=== PATIENT | female | born 1950 | race American Indian/Alaskan Native ===

== ENCOUNTER 2017-12-15 15:10 | Observation (INO) | payer BC, MEDICARE ==
[2017-12-15 15:10] VITALS: BMI 25.8
[2017-12-15] MEDS ORDERED: Sodium Chloride 0.9% 1,000 ML IV STA (15:51)
[2017-12-15] MEDS ORDERED: Barium Sulfate Susp 2.1% w/v, 2.0% w/w 450 mL Bottle PO ONE (16:12)
[2017-12-15 16:38] LABS: ALB/GLOB RATIO 1.2 (1.1-1.8); ALBUMIN 4.3 g/dL (3.0-4.8); ALT/SGPT 29 U/L (7-56); AMYLASE 72 U/L (35-125); AST/SGOT 28 U/L (14-36); BLOOD UREA NITROGEN 12 mg/dL (7-21); CALCIUM 10.1 mg/dL (8.4-10.5); GFR AFRICAN-AMERICAN > 60; GFR NON-AFRICAN AMERICAN 55; LIPASE 24 U/L (23-300)
[2017-12-15] MEDS ORDERED: Potassium Chloride 20 mEq ER Tab PO STA (16:40)
[2017-12-15 16:46] LABS: PH,URINE 5.5 (4.7-8.0); URINE BILIRUBIN SMALL (NEGATIVE); URINE BLOOD LARGE (NEGATIVE); URINE GLUCOSE (UA) NEGATIVE (NEGATIVE); URINE LEUKOCYTE ESTERASE TRACE Leu/uL (NEGATIVE); URINE PROTEIN 30 mg/dL (<30 mg/dL); URINE UROBILINOGEN 0.2 E.U./dL (<1 E.U./dL)
[2017-12-15 16:48] LABS: URINE APPEARANCE CLEAR (CLEAR); URINE COLOR YELLOW (YELLOW)
[2017-12-15 16:49] LABS: BASO # 0.02 K/mm3 (0.0-2.0); BASO % 0.2 % (0.0-3.0); EOS % 0.4 % (1.5-5.0); GRAN # 8.66 (1.4-6.5); GRAN % 75.8 % (50.0-68.0); HEMOGLOBIN 12.1 g/dL (12.0-16.0); LYMPH # 1.9 (1.2-3.4); LYMPH % 16.7 % (22.0-35.0); MEAN CELL VOLUME 81.9 fl (80.0-105.0); MEAN CORPUSCULAR HEMOGLOBIN 27.1 pg (25.0-35.0); MEAN CORPUSCULAR HGB CONC 33.1 g/dl (31.0-37.0); MEAN PLATELET VOLUME 9.2 fl (7.0-11.0); MONO # 0.8 (0.1-0.6); MONO % 6.9 % (1.0-6.0); RBC 4.47 10^6/uL (3.5-6.1); RED CELL DISTRIBUTION WIDTH 13.7 % (11.5-14.5); TROPONIN I < 0.01 ng/mL; WHITE BLOOD COUNT 11.4 10^3/ul (4.5-11.0)
--- NOTE | 2017-12-15 16:59 | ED PDOC ---
Arrival/HPI - General Chief Complaint: Abdominal Pain Time Seen by Provider: 12/15/17 15:18 Historian: Patient - History of Present Illness Narrative History of Present Illness (Text): 12/15/17 16:54 67yo female with no significant PMHx and surgical history of hernia repair present with complaint of LLQ abdominal pain with nausea, heaves and loose stool. States pain started 3days ago and became worse today. She thinks pain is from carrying heavy luggages few days prior. States she is heaving because she didn't eat for few days, secondary to Christian fasting. She denies melena, hematemesi, fever, chills, chest pain, SOB, diaphoresis, urinary symptoms, any other complaint. Past Medical History - Provider Review Nursing Documentation Reviewed: Yes - Reproductive Menopause: Yes - Cardiac Hx Cardiac Disorders: No - Pulmonary Hx Respiratory Disorders: No - Neurological Hx Neurological Disorder: No - HEENT Hx HEENT Disorder: No - Renal Hx Renal Disorder: No - Endocrine/Metabolic Hx Endocrine Disorders: No - Hematological/Oncological Hx Blood Disorders: No - Integumentary Hx Eczema: Yes - Musculoskeletal/Rheumatological Hx Musculoskeletal Disorders: No - Gastrointestinal Hx Gastrointestinal Disorders: No - Genitourinary/Gynecological Hx Genitourinary Disorders: No - Psychiatric Hx Psychophysiologic Disorder: No Hx Emotional Abuse: No Hx Physical Abuse: No Hx Substance Use: No - Surgical History Other/Comment: HERNIA REPAIR - Suicidal Assessment Feels Threatened In Home Enviroment: No Family/Social History - Physician Review Nursing Documentation Reviewed: Yes Family/Social History: Unknown Family HX Smoking Status: Unknown If Ever Smoked Hx Alcohol Use: No Hx Substance Use: No Hx Substance Use Treatment: No Allergies/Home Meds Allergies/Adverse Reactions: Allergies Iodine and Iodide Containing Produc Allergy (Verified 12/15/17 15:20) RASH shellfish derived Allergy (Verified 12/15/17 15:20) RASH Home Medications: Home Meds Medication Instructions Recorded Confirmed No Known Home Med [No Known Home 12/30/14 12/15/17 Med] Review of Systems - Physician Review All systems were reviewed & negative as marked: Yes - Review of Systems Constitutional: Normal Eyes: Normal ENT: Normal Respiratory: Normal Cardiovascular: Normal Gastrointestinal: Abdominal Pain, Nausea, Vomiting. absent: Constipation, Diarrhea, Hematochezia, Hematemesis Genitourinary Female: Normal Musculoskeletal: Normal Skin: Normal Neurological: Normal Endocrine: Normal Hemo/Lymphatic: Normal Psychiatric: Normal Physical Exam Vital Signs Reviewed: Yes Vital Signs Temp Pulse Resp BP Pulse Ox 12/15/17 18:35 79 18 135/79 99 12/15/17 16:50 89 18 138/89 99 12/15/17 15:22 98.1 F 98 H 18 142/92 H 99 12/15/17 15:14 98.1 F 98 H 20 142/92 H 99 Temperature: Afebrile Blood Pressure: Normal Pulse: Regular Respiratory Rate: Normal Appearance: Positive for: Well-Appearing, Non-Toxic, Comfortable Pain Distress: None Mental Status: Positive for: Alert and Oriented X 3 - Systems Exam Head: Present: Atraumatic, Normocephalic Pupils: Present: PERRL Extroacular Muscles: Present: EOMI Conjunctiva: Present: Normal Mouth: Present: Moist Mucous Membranes Neck: Present: Normal Range of Motion Respiratory/Chest: Present: Clear to Auscultation, Good Air Exchange. No: Respiratory Distress, Accessory Muscle Use Cardiovascular: Present: Regular Rate and Rhythm, Normal S1, S2. No: Murmurs Abdomen: Present: Normal Bowel Sounds, Other (Soft). No: Tenderness, Distention , Peritoneal Signs, Rebound, Guarding, McBurney's Point Tender, Rovsing's Sign Present Back: Present: Normal Inspection Upper Extremity: Present: Normal Inspection. No: Cyanosis, Edema Lower Extremity: Present: Normal Inspection. No: Edema Neurological: Present: GCS=15, CN II-XII Intact, Speech Normal Skin: Present: Warm, Dry, Normal Color. No: Rashes Psychiatric: Present: Alert, Oriented x 3, Normal Insight, Normal Concentration Medical Decision Making ED Course and Treatment: 12/15/17 20:04 PT in ED for stated history. Her pain was controlled in ED with medication and hydration. She was able to tolerate PO in ED after antiemesis. She had no fever. Small leukocytosis was noted. PT also had UTI Abdominal/Pelvic CT IMPRESSION: 10.64 mm obstructing calculus left UPJ with moderate left-sided hydronephrosis and infiltration changes in the left perinephric fat as described. Additional punctate calcifications seen scattered throughout both kidneys however no evidence of right-sided hydronephrosis. The small hiatal hernia with wall thickening distal esophagus likely due to protrusion of gastric mucosa. Possibility of esophagitis or other intrinsic/ invasive wall lesion not excluded. Clinical correlation recommended. See above discussion for additional details and findings. Case was DW Dr. tripathi and pt will be admitted. Case was DW Dr. velasquez and pt was admitted to his service PT was started on Cipro All result and plan was DW the pt and she agreed. - Lab Interpretations Lab Results: 12/15/17 16:04 12/15/17 16:04 Lab Results 12/15/17 16:17: Urine Color Yellow, Urine Appearance Clear, Urine pH 5.5, Ur Specific [place] >= 1.030, Urine Protein 30 H, Urine Glucose (UA) Negative, Urine Ketones Trace H, Urine Blood Large H, Urine Nitrate Negative, Urine Bilirubin Small H, Urine Urobilinogen 0.2, Ur Leukocyte Esterase Trace H, Urine RBC 25 - 30, Urine WBC 2 - 5, Ur Epithelial Cells 4 - 5, Urine Bacteria Many, Urine Other Fiber 12/15/17 16:04: Sodium 130 L, Potassium 3.5 L, Chloride 103, Carbon Dioxide 24, Anion Gap 7 L, BUN 12, Creatinine 1.0, Est GFR ( Amer) > 60, Est GFR (Non -Af Amer) 55, Random Glucose 108, Calcium 10.1, Total Bilirubin 1.2, AST 28, ALT 29, Alkaline Phosphatase 113, Lactate Dehydrogenase 738 H, Total Creatine Kinase 114, Troponin I < 0.01, Total Protein 7.8, Albumin 4.3, Globulin 3.5, Albumin/Globulin Ratio 1.2, Amylase 72, Lipase 24 12/15/17 16:04: PT 12.8 H, INR 1.12 H, APTT 28.2 12/15/17 16:04: WBC 11.4 H, RBC 4.47, Hgb 12.1, Hct 36.6, MCV 81.9, MCH 27.1, MCHC 33.1, RDW 13.7, Plt Count 266, MPV 9.2, Gran % 75.8 H, Lymph % (Auto) 16.7 L, [place] % (Auto) 6.9 H, Eos % (Auto) 0.4 L, Baso % (Auto) 0.2, Gran # 8.66 H, Lymph # (Auto) 1.9, [place] # (Auto) 0.8 H, Eos # (Auto) 0.0, Baso # (Auto) 0.02 - RAD Interpretation Radiology Orders: 12/15/17 16:09 ABD & PELVIS PO CONTRAST ONLY [CT] Stat - Medication Orders Current Medication Orders: Sodium Chloride (Sodium Chloride 0.9%) 1,000 mls @ 100 mls/hr IV .Q10H MICHAEL Stop: 12/16/17 14:59 Last Admin: 12/15/17 19:10 Dose: 100 mls/hr eMAR Start Stop Document 12/15/17 19:10 LA (Rec: 12/15/17 19:10 LA [id number]) Intravenous Solution Start Date 12/15/17 Start Time 19:10 Discontinued Medications Famotidine (Pepcid) 20 mg IVP STAT STA Stop: 12/15/17 15:51 Last Admin: 12/15/17 16:24 Dose: 20 mg IVP Administration Document 12/15/17 16:24 LA (Rec: 12/15/17 16:24 LA [id number]) Charges for Administration # of IVP Administrations 1 Sodium Chloride (Sodium Chloride 0.9%) 1,000 mls @ 1,000 mls/hr IV .Q1H STA Stop: 12/15/17 16:50 Last Admin: 12/15/17 16:25 Dose: 1,000 mls/hr eMAR Start Stop Document 12/15/17 16:25 LA (Rec: 12/15/17 16:25 LA [id number]) Intravenous Solution Start Date 12/15/17 Start Time 16:25 Ciprofloxacin (Cipro 400mg/200ml Dsw) 400 mg in 200 mls @ 133.3 mls/hr IVPB STAT STA PRN Reason: Protocol Stop: 12/15/17 19:34 Last Admin: 12/15/17 18:58 Dose: 133.3 mls/hr eMAR Start Stop Document 12/15/17 18:58 LA (Rec: 12/15/17 18:58 LA [id number]) Intravenous Solution Start Date 12/15/17 Start Time 18:58 Ketorolac Tromethamine (Toradol) 15 mg IVP STAT STA Stop: 12/15/17 18:05 Last Admin: 12/15/17 18:58 Dose: 15 mg MAR Pain Assessment Document 12/15/17 18:58 LA (Rec: 12/15/17 19:00 LA [id number]) Pain Reassessment Is this a pain reassessment? Yes Sleep Is patient sleeping during reassessment? No Presence of Pain Presence of Pain Yes Location Left, Right or Bilateral Left Upper or Lower Lower Pain Location Body Site Abdomen Description Description Nausea Present Intensity of Pain at present 7 IVP Administration Document 12/15/17 18:58 LA (Rec: 12/15/17 19:00 LA [id number]) Charges for Administration # of IVP Administrations 1 Ondansetron HCl (Zofran Inj) 4 mg IVP STAT STA Stop: 12/15/17 15:51 Last Admin: 12/15/17 16:24 Dose: 4 mg IVP Administration Document 12/15/17 16:24 LA (Rec: 12/15/17 16:25 LA [id number]) Charges for Administration # of IVP Administrations 1 Potassium Chloride (K-Dur 20 Meq Er Tab) 20 meq PO STAT STA Stop: 12/15/17 16:41 Last Admin: 12/15/17 17:39 Dose: 20 meq Disposition/Present on Arrival - Present on Arrival Any Indicators Present on Arrival: No History of DVT/PE: No History of Uncontrolled Diabetes: No Urinary Catheter: No History of Decub. Ulcer: No History Surgical Site Infection Following: None - Disposition Have Diagnosis and Disposition been Completed?: Yes Diagnosis: Nephrolithiasis Disposition: HOSPITALIZED Disposition Time: 18:00 Patient Plan: Admission Patient Problems: Current Active Problems Problem Status Onset Nephrolithiasis Acute Condition: FAIR
[2017-12-15 17:00] LABS: INR 1.12 (0.93-1.08); PARTIAL THROMBOPLASTIN TIME 28.2 Seconds (25.1-36.5); PROTHROMBIN TIME 12.8 SECONDS (9.4-12.5)
[2017-12-15 17:32] LABS: URINE RBC 25 - 30 /hpf (0-2)
[2017-12-15 17:33] LABS: URINE BACTERIA MANY (NEG)
--- NOTE | 2017-12-15 17:39 | CT ---
PROCEDURE: CT scan abdomen pelvis dated 12/15/2017 HISTORY: Left lower quadrant abdominal pain. COMPARISON: No prior study available for comparison TECHNIQUE: Contiguous axial images of the abdomen and pelvis. Oral contrast was administered. No IV contrast given. Coronal and Sagittal reformats generated. Radiation dose: Total exam DLP = This CT exam was performed using one or more of the following dose reduction techniques: Automated exposure control, adjustment of the mA and/or kV according to patient size, and/or use of iterative reconstruction technique. FINDINGS: LOWER THORAX: No acute effusion or basilar pneumothorax. There may be some minimal scarring changes in the left lung base and lingular region. Small hiatal hernia with wall thickening of the distal esophagus likely due to protrusion of gastric mucosa. Possibility of esophagitis or other intrinsic/ invasive wall lesion not excluded. LIVER: Liver exhibits normal size and attenuation pattern without mass collection or calcification. GALLBLADDER AND BILE DUCTS: Unremarkable. PANCREAS: Pancreas is slightly atrophic and fatty replaced. SPLEEN: Unremarkable. No splenomegaly. ADRENALS: . Mildly prominent left adrenal gland. KIDNEYS AND URETERS: There is an approximately 10.6 mm calculus in the left UPJ with moderate left-sided hydronephrosis. . Few punctate calcifications mid and lower pole left kidney. Infiltration changes in the perinephric fat extending anteriorly and superiorly adjacent to the tail of the pancreas. Few punctate calcifications are right kidney also present however no evidence of right-sided hydronephrosis. BLADDER: Urinary bladder is incompletely distended which presumably accounts for thick-walled appearance. Correlation with urinalysis recommended to exclude the possibility of a cystitis REPRODUCTIVE: Uterus unremarkable. APPENDIX: Unremarkable. BOWEL: Evaluation of the bowel is limited due to the incomplete opacification. The stomach is distended with oral contrast material and air as well some food debris. Visualized loops of small bowel exhibit relatively normal contour and caliber. No evidence acute mechanical small bowel obstruction. Normal-appearing appendix best seen on coronal image number [id number]. No periappendiceal inflammatory changes. Stool and air seen throughout the cecum and at ascending colon. Most of the remaining colon is relatively collapsed. PERITONEUM: Unremarkable. No fluid collection. No free air. . Small fat containing umbilical hernia. . There is a small fat containing right the inguinal hernia. LYMPH NODES: Unremarkable. No enlarged lymph nodes. VASCULATURE: Unremarkable. No aortic aneurysm. BONES: Mild multilevel degenerative spondylosis of the lower thoracic and lumbar spine. Slight anterior subluxation L4 over L5 likely due to facet arthropathy. Slight uncovering of the posterior superior surface of the disc along with minor broad-based disc bulge ridge complex. . Facets are hypertrophic with resultant bilateral lateral recess and mild central canal stenosis. OTHER FINDINGS: None. IMPRESSION: 10.64 mm obstructing calculus left UPJ with moderate left-sided hydronephrosis and infiltration changes in the left perinephric fat as described. Additional punctate calcifications seen scattered throughout both kidneys however no evidence of right-sided hydronephrosis. The small hiatal hernia with wall thickening distal esophagus likely due to protrusion of gastric mucosa. Possibility of esophagitis or other intrinsic/invasive wall lesion not excluded. Clinical correlation recommended. See above discussion for additional details and findings.
[2017-12-15] MEDS ORDERED: Ciprofloxacin 400mg/200ml D5W 400 MG/200 ML BAG IVPB STA (18:04)
[2017-12-15] MEDS: Sodium Chloride 0.9% 1,000 ML IV SCH (19:10)
[2017-12-16] MEDS: Sodium Chloride 0.9% 1,000 ML IV SCH (05:00)
[2017-12-16] MEDS ORDERED: Iohexol 240 (50 ml) ONE (07:49)
[2017-12-16] MEDS ORDERED: Lidocaine 2% Jelly (Uro-Jet) ONE (07:49)
[2017-12-16] MEDS ORDERED: Propofol 10 mg/ml Inj (20 ML) ONE (08:05)
[2017-12-16] MEDS ORDERED: Midazolam 2 MG/2 ML VIAL ONE (08:05)
[2017-12-16] MEDS ORDERED: cefTRIAXone (Rocephin) 1 gm Inj ONE (08:09)
[2017-12-16] MEDS ORDERED: Sodium Chloride 0.9% 1,000 ML IV SCH (09:00)
--- NOTE | 2017-12-16 10:31 | CARD ---
APPROVED REPORT EKG Measurement Heart [id number] <Conclusion> Normal sinus rhythm Moderate voltage criteria for LVH, may be normal variant Borderline ECG
[2017-12-16 10:43] VITALS: RESP 20
[2017-12-16 12:37] LABS: BLOOD UREA NITROGEN 12 mg/dL (7-21); CALCIUM 9.6 mg/dL (8.4-10.5); GFR AFRICAN-AMERICAN > 60; GFR NON-AFRICAN AMERICAN 55
[2017-12-16 12:52] LABS: HEMOGLOBIN 11.3 g/dL (12.0-16.0); MEAN CELL VOLUME 83.2 fl (80.0-105.0); MEAN CORPUSCULAR HEMOGLOBIN 27.1 pg (25.0-35.0); MEAN CORPUSCULAR HGB CONC 32.6 g/dl (31.0-37.0); RBC 4.17 10^6/uL (3.5-6.1); RED CELL DISTRIBUTION WIDTH 13.9 % (11.5-14.5); WHITE BLOOD COUNT 8.9 10^3/ul (4.5-11.0)
--- NOTE | 2017-12-16 12:58 | RAD ---
HISTORY: compare with ct COMPARISON: No prior. FINDINGS: BOWEL: Normal. No obstruction. No free air. BONES: Normal. OTHER FINDINGS: Left ureteral stent. There are no stones seen along side the stent. 10 mm stone in lower pole of left kidney IMPRESSION: As above
--- NOTE | 2017-12-16 13:08 | RAD ---
PROCEDURE: Retrograde pyelogram HISTORY: LT SIDE COMPARISON: TECHNIQUE: Fluoroscopy was provided in the operating room. 25.3 seconds of fluoro time. Nine images submitted FINDINGS: The study shows placement of a left ureteral stent. IMPRESSION: As above
[2017-12-16 16:41] VITALS: BP 152/74; PULSE 81; TEMP 97.6; O2SAT 100
--- NOTE | 2018-01-02 18:31 | OP ---
PROCEDURE DATE: 12/16/2017 PREOPERATIVE DIAGNOSES: Urolithiasis, hematuria, hydronephrosis, severe flank pain. POSTOPERATIVE DIAGNOSES: Urolithiasis, hematuria, hydronephrosis, severe flank pain. PROCEDURES: Cystoscopy, retrograde pyelogram, insertion of a double J-stent. COMPLICATIONS: None. BLOOD LOSS: Less than 10 mL. At the termination of the procedure, the patient has a double-J stent in place. INDICATIONS: See history and physical and consultation. A very pleasant lady who presented with severe renal colic. This is an emergency procedure. We discussed the option. Again, her daughter who has also been involved in her care, asking me to push to see if we can do this as rapidly as possible as the patient has a fairly large stone in her renal pelvic area. The patient presented with severe renal colic last night. We discussed the options with the patient and she is here now for an emergency add on at 7:30 in the morning, as the first procedure. See the indications or copy the further details from consultation. DESCRIPTION OF PROCEDURE: After obtaining informed consent, the patient was placed on the table. Routine monitor was placed. Time-out was called to confirm the patient and positioning. Antibiotic prophylaxis used. We introduced a cystoscope via urethra. The ureter orifice identified. Retrograde pyelogram was performed. A wire was passed up to the kidney. We confirmed the positioning of the fluoroscopic imaging and we placed a double-J stent. At this point, the double-J stent was in good location. We confirmed this positioning. The patient tolerated the procedure without complications. ADDENDUM: Our plan will be to bring the patient to the stone center as rapidly as possible. Depending on evaluate home medication that previously have been given. In terms of Toradol, Aleve, etc. Further plans will follow. Kodak Fraga MD MTDD
--- NOTE | 2018-01-04 21:14 | OP ---
PROCEDURE DATE: 12/16/2017 PREOPERATIVE DIAGNOSES: Urolithiasis, hematuria, hydronephrosis, flank pain, severe renal colic. POSTOPERATIVE DIAGNOSES: Urolithiasis, hematuria, hydronephrosis, flank pain, severe renal colic. PROCEDURE: Cystoscopy, retrograde pyelogram, insertion of a double J-stent. COMPLICATIONS: There were no complications. FINDINGS: Stone, hydronephrosis, and otherwise normal caliber ureter. ESTIMATED BLOOD LOSS: Less than 10 mL, just double J stent left. INDICATIONS: See history and physical for the details. See the consultation note, patient is here with the above options discussed. Actually, patient came in last evening. We discussed options with the patient and with the daughter. We have 7:30 case yesterday. This is part one with a plan to then bring it to [facility] for [facility]. In fact, she may require two ESWL because of fairly large stone burden. DESCRIPTION OF PROCEDURE: After obtaining informed consent, the patient was placed on the table. Routine monitor was placed. Time-out was called to confirm the patient's positioning. Antibiotic prophylaxis had been used. Cystoscope via urethra, ureteral orifice was identified. Retrograde pyelogram was performed. A wire was passed up to the kidney, confirmed the positioning fluoroscopically and then double-J stent is inserted. The bladder was emptied, cystoscope removed. Patient tolerated the procedure without complications. Kodak Fraga MD MARINO
--- NOTE | 2018-01-04 22:29 | CON ---
DATE: UROLOGY CONSULTATION REASON FOR CONSULTATION: Severe renal colic. HISTORY OF PRESENT ILLNESS: This is a very pleasant lady presenting here with severe renal colic. She has hydronephrosis, severe pain. See the plans listed below. We are going to bring her to the OR as immediately as possible. The patient presents with stone, hydronephrosis, and severe pain. PAST MEDICAL AND SURGICAL HISTORY: No history of any RI or CVA. SOCIAL HISTORY: She is actually here with her daughter. Spoken to her daughter few times. She works in two areas. 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 REVIEW OF SYSTEMS: As above. No weight loss, chest pain. No night sweats. Basically negative review of systems. PHYSICAL EXAMINATION: GENERAL: She is a well-nourished female, moderate grimace on her face, but otherwise within normal limits. VITAL SIGNS: Within normal limits. LUNGS: Clear. HEART: Normal S1 and S2. NECK: No cervical or axillary lymphadenopathy. ABDOMEN: Overall soft. No real CVA tenderness. PELVIC: Though mentioned, now no real pelvic or rectal masses, mild cystocele. CT scan noted. Labs noted. All within the chart. DIAGNOSES: Severe renal colic, hydronephrosis, hematuria, and stone. We discussed the options. At this point, we are going to bring the patient first for a cystoscopy and stent as immediately as possible. Given the late hour of this consultation, we are now going to plan to bring her to the OR first thing in the morning. I have made arrangements with the nursing supervisory clerk as a squeeze on for 7:30 procedure. PLAN: Cystoscopy, retrograde, and stent and then we will bring the patient out to the [facility] for shock[facility] lithotripsy. I explained in great detail risks, benefits, and treatment alternatives, then the plan for stage strategy. Further plans to follow. Thank you for the urology consultation. Kodak Fraga MD
== END 2017-12-16 19:05 | disposition home or self-care (01) ==
LOC: ED 15:10 → ERH 18:26 → 5RNO 22:21
PROVIDERS: ADMIT Internal Medicine Nephrology; ATTEND Internal Medicine
DX: N13.2 Hydronephrosis with renal and ureteral calculous obstruction (principal); K44.9 Diaphragmatic hernia without obstruction or gangrene
CPT/HCPCS: 36415; 52332; 74022; 74176; 74420; 80048; 80053; 81001; 82150; 82550; 83615; 83690; 84484; 85025; 85027; 85610; 85730; 87086; 93005; 96374; 96375; 99285; C2617; G0378; J0696; J0744; J1885; J2250; J2405; J2704; J3010; J7040; J7120; Q9966

== ENCOUNTER 2018-06-19 16:57 | Inpatient (IN) | payer BC, MEDICARE ==
[2018-06-19] MEDS ORDERED: Sodium Chloride 0.9% 1,000 ML IV STA (20:58)
[2018-06-19] MEDS ORDERED: Piperacillin/Tazobact 3.375 gm 100 ML IVPB STA (21:00)
[2018-06-19] MEDS ORDERED: Vancomycin 1gm in NS 250ml 1 GM/250 ML BAG IVPB STA (21:02)
[2018-06-19] MEDS ORDERED: Clotrimazole/Betamethasone Cream(15 gm) TOP STA (21:03)
--- NOTE | 2018-06-19 21:39 | ED PDOC ---
Arrival/HPI - General Historian: Patient - General Chief Complaint: Abnormal Skin Integrity Time Seen by Provider: 06/19/18 20:55 - History of Present Illness Narrative History of Present Illness (Text): 06/19/18 21:07 68 year old female with PMH of eczema and kidney stones who presents to the Emergency department complaining of rashes to her b/l feet x 2 days. Pt has had intermittent irritation to her b/l feet over the last month that worsened over the last 2 days. 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 Her tops of her feet are now swollen, red, scaled, and weeping. She is now unable to put her shoes on her feet secondary to swelling and pain. She is also complaining of an itchy rash in between the skin folds of her abdomen. She has been applying lotion and rubbing alcohol without relief. Pt also took 2 tabs benadryl and 3 tabs tylenol this afternoon for the irritation without relief. Denies fever, chills, chest pain, shortness of breath, dizziness, lightheadedness, headaches, weakness. 06/19/18 22:00 (Kiley Jane) Past Medical History - Provider Review Nursing Documentation Reviewed: Yes - Infectious Disease Hx of Infectious Diseases: None - Cardiac Hx Cardiac Disorders: No - Pulmonary Hx Respiratory Disorders: No - Neurological Hx Neurological Disorder: No - HEENT Hx HEENT Disorder: No - Renal Hx Kidney Stones: Yes - Endocrine/Metabolic Hx Endocrine Disorders: No - Hematological/Oncological Hx Blood Transfusions: No Hx Blood Transfusion Reaction: No - Integumentary Hx Dermatological Disorder: No - Musculoskeletal/Rheumatological Hx Musculoskeletal Disorders: No Hx Falls: No - Gastrointestinal Hx Gastrointestinal Disorders: No - Genitourinary/Gynecological Hx Genitourinary Disorders: No - Psychiatric Hx Psychophysiologic Disorder: No Hx Substance Use: No - Surgical History Other/Comment: hernia repair. Kidney stent - Anesthesia Hx Anesthesia Reactions: No Hx Malignant Hyperthermia: No - Suicidal Assessment Feels Threatened In Home Enviroment: No Family/Social History - Physician Review Nursing Documentation Reviewed: Yes Family/Social History: No Known Family HX Smoking Status: Never Smoked Hx Alcohol Use: No Hx Substance Use: No Hx Substance Use Treatment: No Allergies/Home Meds Allergies/Adverse Reactions: Allergies Iodine and Iodide Containing Produc Allergy (Verified 06/19/18 18:27) RASH shellfish derived Allergy (Verified 06/19/18 18:27) RASH cast material Allergy (Uncoded 06/19/18 18:27) SWELLING Review of Systems - Physician Review All systems were reviewed & negative as marked: Yes - Review of Systems Constitutional: Normal. absent: Fevers Eyes: Normal. absent: Vision Changes ENT: Normal Respiratory: Normal. absent: SOB, Cough Cardiovascular: Normal. absent: Chest Pain, Palpitations Gastrointestinal: Normal. absent: Abdominal Pain, Diarrhea, Nausea, Vomiting Genitourinary Female: Normal. absent: Dysuria, Frequency Skin: Rash (intertriginous area of abdomen; bilateral tops of feet), Pruritis, Skin Lesions, Cellulitis (bilateral feet, right leg) Neurological: Normal. absent: Headache, Dizziness Hemo/Lymphatic: Normal. absent: Adenopathy Physical Exam Vital Signs Reviewed: Yes Temperature: Afebrile Blood Pressure: Normal Pulse: Regular Respiratory Rate: Normal Appearance: Positive for: Well-Appearing, Non-Toxic, Uncomfortable Pain Distress: None Mental Status: Positive for: Alert and Oriented X 3 - Systems Exam Head: Present: Atraumatic, Normocephalic Respiratory/Chest: Present: Clear to Auscultation, Good Air Exchange. No: Respiratory Distress, Accessory Muscle Use Cardiovascular: Present: Regular Rate and Rhythm, Normal S1, S2. No: Murmurs Abdomen: Present: Other (fungal rash to intertriginous area, abdominal skin fold ). No: Tenderness, Distention, Peritoneal Signs Upper Extremity: Present: Normal Inspection, NORMAL PULSES Lower Extremity: Present: CALF TENDERNESS (left calf), Tenderness (b/l feet and right lower leg), Swelling (b/l feet and right lower leg), Erythema (b/l tops of feet). No: Normal ROM (decreased ROM of b/l toes and ankles secondary to pain), Deformity Neurological: Present: GCS=15, Speech Normal, Motor Func Grossly Intact, Normal Sensory Function Skin: Present: Rashes (tender, pruritic, erythematous, weeping, scaled rash to b /l tops of feet ), Hot (increased warmth on right lower leg and b/l tops of feet ). No: Normal Color Lymphatic: No: Cervical Adenopathy Psychiatric: Present: Alert, Oriented x 3, Normal Insight, Normal Concentration Vital Signs Temp Pulse Resp BP Pulse Ox 06/19/18 18:23 98.1 F 79 18 145/83 99 Medical Decision Making ED Course and Treatment: 06/19/18 21:54 68 year old female with PMH of eczema who presents to the Emergency department complaining of rashes to her b/l feet x 2 days. Pt has had intermittent irritation to her b/l feet over the last month that worsened over the last 2 days. 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 Her tops of her feet are now swollen, red, scaled, and weeping. She is now unable to put her shoes on her feet secondary to swelling and pain. She is also complaining of an itchy rash in between the skin folds of her abdomen. She has been applying lotion and rubbing alcohol without relief. Pt also took 2 tabs benadryl and 3 tabs tylenol this afternoon for the irritation without relief. Denies fever, chills, chest pain, shortness of breath, dizziness, lightheadedness, headaches, weakness, numbness, parethesias, abdominal pain, N/V , diarrhea, urinary symptoms. Physical exam reveals tender, pruritic, erythematous, weeping, scaled rash to b/ l top of feet. fungal rash to intertriginous area in abdominal skin folds. Dr. Farias saw and evaluated pt. Will order labs (CBC, CMP, PT) Will order blood cultures Will order VBG Will order b/l duplex ultrasounds of legs Will order podiatry consult Will order lotrisone cream Will give IV fluids Will order IV antibiotics (Vanco, Zosyn) Will admit pt for treatment of cellulitis Plan discussed with pt and family who understand and agree. Pt comfortable with admission to hospital. Dr. Farias called Dr. Arevalo who accepted admission to med/surg floor for cellulitis. Signing over pt care to Dr. Farias. (Kiley Jane) 06/19/18 23:30 LE Ultrasound returned, no present DVT bilaterally. (Edwin Farias) - RAD Interpretation Radiology Orders: 06/19/18 20:58 DUPLEX LOWER EXTRM VEIN BILAT [US] Stat - Medication Orders Current Medication Orders: Discontinued Medications Betamethasone/Clotrimazole (Lotrisone) 0 gm TOP BID STA Stop: 06/19/18 21:04 Sodium Chloride (Sodium Chloride 0.9%) 1,000 mls @ 999 mls/hr IV .Q1H1M STA Stop: 06/19/18 21:58 Last Admin: 06/19/18 21:53 Dose: 999 mls/hr eMAR Start Stop Document 06/19/18 21:53 IT (Rec: 06/19/18 21:53 IT [id number]) Intravenous Solution Start Date 06/19/18 Start Time 21:53 Piperacillin Sod/Tazobactam Sod (Zosyn 3.375 In Ns 100ml) 100 mls @ 200 mls/hr IVPB STAT STA PRN Reason: Protocol Stop: 06/19/18 21:29 Last Admin: 06/19/18 21:53 Dose: 200 mls/hr eMAR Start Stop Document 06/19/18 21:53 IT (Rec: 06/19/18 21:53 IT [id number]) Intravenous Solution Start Date 06/19/18 Start Time 21:53 Vancomycin HCl (Vancomycin 1gm) 1 gm in 250 mls @ 167 mls/hr IVPB STAT STA PRN Reason: Protocol Stop: 06/19/18 22:31 Disposition/Present on Arrival - Present on Arrival Any Indicators Present on Arrival: No History of DVT/PE: No History of Uncontrolled Diabetes: No Urinary Catheter: No History of Decub. Ulcer: No History Surgical Site Infection Following: None - Disposition Have Diagnosis and Disposition been Completed?: Yes Disposition Time: 21:00 Patient Plan: Admission - Disposition Diagnosis: Cellulitis Disposition: HOSPITALIZED Condition: STABLE
[2018-06-19 21:54] LABS: BASO # 0.02 K/mm3 (0.0-2.0); BASO % 0.4 % (0.0-3.0); EOS # 0.2 (0.0-0.7); EOS % 3.7 % (1.5-5.0); GRAN # 3.14 (1.4-6.5); GRAN % 55.8 % (50.0-68.0); HEMOGLOBIN 12.2 g/dL (12.0-16.0); LYMPH # 1.8 (1.2-3.4); LYMPH % 32.4 % (22.0-35.0); MEAN CELL VOLUME 84.1 fl (80.0-105.0); MEAN CORPUSCULAR HEMOGLOBIN 26.9 pg (25.0-35.0); MEAN CORPUSCULAR HGB CONC 31.9 g/dl (31.0-37.0); MEAN PLATELET VOLUME 8.9 fl (7.0-11.0); MONO # 0.4 (0.1-0.6); MONO % 7.7 % (1.0-6.0); RBC 4.54 10^6/uL (3.5-6.1); RED CELL DISTRIBUTION WIDTH 14.1 % (11.5-14.5); VENOUS BLOOD GAS PO2 65 mm/Hg (30-55); VENOUS BLOOD PH 7.28 (7.32-7.43); WHITE BLOOD COUNT 5.6 10^3/ul (4.5-11.0)
[2018-06-19 21:56] LABS: INR 1.05
[2018-06-19 22:03] LABS: BLOOD UREA NITROGEN 18 mg/dL (7-21); CALCIUM 9.3 mg/dL (8.4-10.5); GFR NON-AFRICAN AMERICAN > 60
[2018-06-19 22:04] LABS: ALB/GLOB RATIO 1.3 (1.1-1.8); ALBUMIN 4.3 g/dL (3.0-4.8); ALT/SGPT 30 U/L (7-56); AST/SGOT 37 U/L (14-36)
[2018-06-20] MEDS ORDERED: Morphine 4 mg/ml ISec IVP PRN ×2 (01:07→21:52)
[2018-06-20 01:13] VITALS: BMI 26.6
[2018-06-20] MEDS: Vancomycin 1gm in NS 250ml 1 GM/250 ML BAG IVPB SCH ×2 (08:42→20:14)
[2018-06-20] MEDS: Cefepime 1gm in NS 100ml 1 GM/100 ML BAG IVPB SCH ×2 (10:28→21:24)
--- NOTE | 2018-06-20 11:59 | US ---
HISTORY: Leg pain and swelling. Evaluate for DVT PHYSICIAN(S): Abdirahman Recinos MD. TECHNIQUE: Duplex sonography and color-flow Doppler with graded compression were used to evaluate the deep venous systems of both lower extremities. The exam is limited by edema. FINDINGS: The visualized deep venous systems of both lower extremities are sonographically normal and compressible. Normal wave forms and augmentation are seen. There is no sonographic evidence for deep venous thrombosis in the visualized segments of both lower extremities. IMPRESSION: No sonographic evidence for deep venous thrombosis in the visualized segments of both lower extremities.
--- NOTE | 2018-06-20 15:54 | CP.PCM.CON ---
History of Present Illness - History of Present Illness History of Present Illness: Podiatry Consult note for Dr. Bell 68F with PMH Eczema and Kidney stones seen at bedside for weeping skin of right foot and b/l LE swelling. 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 She noticed the tops of her feet becoming itchy and scaled with associated drainage and swelling. She denies any redness, malodor or other signs of infection but does state that the top of her left foot is painful. She states that she used Benadryl to try and stop the associated itching. Patient is AAO x 3 and NAD during entirety of visit. Denies any further pedal complaints at this time. Denies any recent N/V/F /CP/SOB/D/posterior calf pain when squeezed. Review of Systems - Review of Systems All systems: reviewed and no additional remarkable complaints except Review of Systems: as per HPI Past Patient History - Infectious Disease Hx of Infectious Diseases: None - Past Social History Smoking Status: Never Smoked - CARDIAC Hx Cardiac Disorders: No - PULMONARY Hx Respiratory Disorders: No - NEUROLOGICAL Hx Neurological Disorder: No - HEENT Hx HEENT Problems: No - RENAL Hx Chronic Kidney Disease: Yes Hx Kidney Stones: Yes - ENDOCRINE/METABOLIC Hx Endocrine Disorders: No - HEMATOLOGICAL/ONCOLOGICAL Hx Blood Disorders: No - INTEGUMENTARY Hx Dermatological Problems: No - MUSCULOSKELETAL/RHEUMATOLOGICAL Hx Musculoskeletal Disorders: No Hx Falls: No - GASTROINTESTINAL Hx Gastrointestinal Disorders: No - GENITOURINARY/GYNECOLOGICAL Hx Genitourinary Disorders: No - PSYCHIATRIC Hx Psychophysiologic Disorder: No - SURGICAL HISTORY Hx Surgeries: Yes Other/Comment: hernia repair. Kidney stent - ANESTHESIA Hx Anesthesia Reactions: No Hx Malignant Hyperthermia: No Meds Allergies/Adverse Reactions: Allergies Allergy/AdvReac Type Severity Reaction Status Date / Time Iodine and Iodide Containing Allergy RASH Verified 06/19/18 18:27 Produc shellfish derived Allergy RASH Verified 06/19/18 18:27 cast material Allergy SWELLING Uncoded 06/19/18 18:27 - Medications Medications: Current Medications Acetaminophen (Tylenol 325mg Tab) 650 mg PO Q6H PRN PRN Reason: Pain, Mild (1-3) Last Admin: 06/20/18 10:27 Dose: 650 mg Cefepime HCl (Maxipime 1gm) 1 gm in 100 mls @ 100 mls/hr IVPB Q12 MICHAEL PRN Reason: Protocol Last Admin: 06/20/18 10:28 Dose: 100 mls/hr Vancomycin HCl (Vancomycin 1gm) 1 gm in 250 mls @ 167 mls/hr IVPB Q12H MICHAEL PRN Reason: Protocol Stop: 06/29/18 08:01 Last Admin: 06/20/18 08:42 Dose: 167 mls/hr Morphine Sulfate (Morphine) 4 mg IVP Q4H PRN PRN Reason: Pain, moderate (4-7) Physical Exam - Constitutional Appears: Well, Non-toxic, No Acute Distress - Extremities Exam Additional comments: LE focused exam: Vasc: DP/PT pulses faintly palpable secondary to b/l 1+ LE edema. CFT < 3 seconds to all digits. Skin temperature warm to warm from proximal to distal Neuro: Epicritic and protective sensation grossly intact b/l Derm: Dorsal left foot noted to have scaling with minimal serous drainage present. Otherwise, no open lesions, wounds, maceration, xerosis, abnormal pigmentation or abnormal growths noted MSK: Pain to dorsal right foot. ROM limited to all major joints secondary to swelling. No other gross deformities noted - Neurological Exam Neurological exam: Alert, Oriented x3 - Psychiatric Exam Psychiatric exam: Normal Affect, Normal Mood Results - Vital Signs Recent Vital Signs: Last Vital Signs Temp 97.5 F L 06/20/18 08:51 Pulse 66 06/20/18 08:51 Resp 18 06/20/18 08:51 BP 148/92 H 06/20/18 08:51 Pulse Ox 99 06/20/18 08:51 - Labs Result Diagrams: 06/19/18 21:40 06/19/18 21:40 Labs: Laboratory Results - last 24 hr 06/19/18 06/19/18 06/19/18 21:40 21:40 21:40 WBC 5.6 D RBC 4.54 Hgb 12.2 Hct 38.2 MCV 84.1 MCH 26.9 MCHC 31.9 RDW 14.1 Plt Count 244 MPV 8.9 Gran % 55.8 Lymph % (Auto) 32.4 [place] % (Auto) 7.7 H Eos % (Auto) 3.7 Baso % (Auto) 0.4 Gran # 3.14 Lymph # (Auto) 1.8 [place] # (Auto) 0.4 Eos # (Auto) 0.2 Baso # (Auto) 0.02 PT INR pO2 65 H VBG pH 7.28 L VBG pCO2 52.0 VBG HCO3 24.4 VBG O2 Sat (Calc) 93.8 H VBG Base Excess -3.0 L Sodium 143 Potassium 4.3 Chloride 111 H Carbon Dioxide 22 Anion Gap 14 BUN 18 Creatinine 0.6 L Est GFR ( Amer) > 60 Est GFR (Non-Af Amer) > 60 Random Glucose 88 Calcium 9.3 Total Bilirubin 0.7 AST 37 H D ALT 30 Alkaline Phosphatase 116 Total Protein 7.7 Albumin 4.3 Globulin 3.4 Albumin/Globulin Ratio 1.3 06/19/18 21:40 WBC RBC Hgb Hct MCV MCH MCHC RDW Plt Count MPV Gran % Lymph % (Auto) [place] % (Auto) Eos % (Auto) Baso % (Auto) Gran # Lymph # (Auto) [place] # (Auto) Eos # (Auto) Baso # (Auto) PT 12.0 INR 1.05 pO2 VBG pH VBG pCO2 VBG HCO3 VBG O2 Sat (Calc) VBG Base Excess Sodium Potassium Chloride Carbon Dioxide Anion Gap BUN Creatinine Est GFR ( Amer) Est GFR (Non-Af Amer) Random Glucose Calcium Total Bilirubin AST ALT Alkaline Phosphatase Total Protein Albumin Globulin Albumin/Globulin Ratio Assessment & Plan - Assessment and Plan (Free Text) Assessment: 68F with PMH Eczema and Kidney stones seen at bedside for weeping skin of right foot and b/l LE swelling Plan: Patient seen and evaluated Plan discussed with Dr. Bell Afebrile, absent leukocytosis Continue abx per ID 06/19 LE US: No evidence of DVT Hydrocortisone cream ordered Wound dressed with Adaptic, DSD No plan for surgical intervention at this time Podiatry will continue to follow while patient in house - Date & Time Date: 06/20/18 Time: 15:59
--- NOTE | 2018-06-20 22:33 | CON ---
DATE: 06/20/2018 The patient is seen in the Emergency Room by Dr. Edwin Farias. CHIEF COMPLAINT: Weakness times several days. HISTORY OF PRESENT ILLNESS: This is a 68-year-old female with a history of eczema, kidney stones, and who is admitted with weakness and lower extremity rash times several days. REVIEW OF SYSTEMS: A 12-point review systems is performed. She denies any trauma. She states that she may have had a mosquito bite and she has had low-grade fevers. No chills. No abdominal pain, diarrhea or constipation. No bright red blood per rectum. No melena, dysuria or frequency and 12-point review of systems performed. PAST MEDICAL HISTORY: Significant for eczema and kidney stones. PAST SURGICAL HISTORY: Significant for hernia surgery. The patient also had cystoscopy on 01/02/2018 and had insertion of double-J stent placement. ALLERGIES: THE PATIENT IS ALLERGIC TO IODINE, IODINE CONTAINING PRODUCTS AND SHELLFISH DERIVED. MEDICATIONS AT HOME: Include the patient to be on Tylenol. PHYSICAL EXAMINATION GENERAL: She is in bed, no acute distress, nontoxic. VITAL SIGNS: Temperature of 97, blood pressure is 140/80, respiratory rate of 18, and heart rate of 75. HEENT: Unremarkable. NECK: Supple. LUNGS: Have decreased breath sounds. HEART: Normal S1 and S2. ABDOMEN: Soft. Nontender. No rebound, no guarding, no masses. EXTREMITIES: Examination of the lower extremities just under her feet to have bilateral edema; however, she does have a breakdown of the skin. SKIN: On examination of the skin fold of the abdomen, she also has breakdown, but not significant erythema or it is not warm to touch. ASSESSMENT AND PLAN: This is a 68-year-old female with a history of eczema, kidney disease, hernia, cystoscopy in the past who is admitted now with bilateral lower extremity foot edema with a cellulitis of the left foot. We will treat the patient with vancomycin and cefepime. Dopplers are pending. Cultures are pending. Should rule out underlying osteomyelitis. Should have vascular workup, ankle branchial indices, sed rate, and C-reactive protein and Podiatry consult and Vascular evaluation. We will make further recommendations upon availability of initial results and response. Yasir Urena MD [facility] # [id number]
[2018-06-21] MEDS: Vancomycin 1gm in NS 250ml 1 GM/250 ML BAG IVPB SCH ×2 (08:33→19:53)
--- NOTE | 2018-06-21 09:01 | HP ---
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 She has been having swelling of her left foot that got worse in the last 2 weeks. She went to see Dr. Bell who advised her to come to the emergency room for further evaluation. Complained of having itchiness to the area. She states her left foot skin got very swollen and started to ooze fluid. Complained of having pain and difficulty walking. Patient was admitted in [facility] in November because of the renal colic. She has been following Dr. Fraga since then. PAST MEDICAL HISTORY: Significant for hypertension. ALLERGIES: PATIENT IS ALLERGIC TO IODINE CONTAINING PRODUCTS, SHELLFISH DERIVATIVE. MEDICATION AT HOME: She is on Tylenol No. 3. SOCIAL HISTORY: Denies smoking, drinking and alcohol use. PHYSICAL EXAMINATION: GENERAL: She is awake, alert, oriented, communicative. VITAL SIGNS: She is afebrile, pulse 81, respirations 20, blood pressure 152/74. LUNGS: Bilateral fair airflow. No rhonchi or crackle. HEART: S1 and S2 audible. ABDOMEN: Soft, nontender. No rebound. No guarding. NEUROLOGIC: Patient is awake, alert, oriented. Able to communicate. LABORATORY EXAMINATION: Yesterday, WBC was 11.4, hemoglobin 12.1. Today, WBC 8.9, hemoglobin 11.3, hematocrit 34.8, platelets of 242. Chemistry: Sodium 140, potassium 3.8, chloride 106, CO of 25, BUN 12, creatinine 1 and blood sugar of 155. Urine has large blood, small bilirubin and 25-30 rbc's. Urine culture is negative. ASSESSMENT AND PLAN: Left foot cellulitis. Patient is being followed by Dr. Bell. Dr. Urena is following from Infectious Disease point of view, has been started on vancomycin and Maxipime. Local wound care will be done by Dr. Bell's team. We will follow up patient in a.m. Jesus Arevalo MD
--- NOTE | 2018-06-21 10:08 | PN ---
DATE: 06/21/2018 HISTORY OF PRESENT ILLNESS: The patient is 68-year-old female admitted to the hospital with bilateral lower leg cellulitis evaluated by Dr. Urena, currently on IV antibiotics. Evaluated by Podiatry team, Dr. Bell. No active surgical intervention needed at this time. Wound dressing done by the Podiatry team. She was also complaining of weakness of the lower extremity and rash for several days. No fever, no cough with expectoration. REVIEW OF SYSTEMS: As per HPI. Rest of 12-point review of systems reviewed negative. PAST MEDICAL HISTORY: Eczema, renal stones. PAST SURGICAL HISTORY: Hernia surgery, cystoscopy, stent placement. ALLERGIES: TO IODINE, SHELLFISH. HOME MEDICATION: Tylenol. CURRENT MEDICATIONS: Reviewed. PHYSICAL EXAMINATION: GENERAL: Comfortable in bed, in no acute distress. VITAL SIGNS: Temperature 97.8, heart rate 80 per minute, blood pressure 130/70, respiratory rate 18 per minute. Heart rate is 75. HEENT: Unremarkable. NECK: No lymphadenopathy. CHEST: Air entry present and equal bilaterally. No added sounds. CARDIOVASCULAR: S1, S2 normal. No murmur. No gallop. ABDOMEN: Soft, nontender. No hepatosplenomegaly. EXTREMITIES: No edema. SKIN: No petechiae. No rash. ASSESSMENT AND PLAN: 1. Bilateral lower leg cellulitis. 2. History of renal stones. 3. History of eczema. PLAN: Continue IV antibiotics and cefepime as per Dr. Urena. She is also on vancomycin. Pain control with morphine every 4 hours p.r.n., hydrocortisone cream applied locally. Tylenol 650 mg every 6 hours p.r.n. Labs ordered for tomorrow. CBC, CMP. Zahraa Nicole MD
[2018-06-21] MEDS: Nystatin 100,000 Units/gm Topical Pow(15 gm) TOP SCH (10:29)
[2018-06-21] MEDS: Cefepime 1gm in NS 100ml 1 GM/100 ML BAG IVPB SCH ×2 (10:29→21:23)
--- NOTE | 2018-06-21 11:30 | CP.PCM.PN ---
Subjective - Date & Time of Evaluation Date of Evaluation: 06/21/18 Time of Evaluation: 11:26 - Subjective Subjective: Podiatry Progress Note for Dr. Bell 68F seen and evaluated at bedside for right foot eczematic changes with skin weeping. Patient is AAO x 3 and NAD, resting comfortably in bed. Denies any acute overnight events or new pedal complaints and states that her pain is well controlled. She also states that the swelling in her legs has decreased since yesterday. Denies any recent N/V/F/C/CP/SOB/D/posterior calf pain when squeezed. Objective - Vital Signs/Intake and Output Vital Signs (last 24 hours): Temp Pulse Resp BP Pulse Ox 97.9 F 69 18 122/73 98 06/21/18 09:31 06/21/18 09:31 06/21/18 09:31 06/21/18 09:31 06/21/18 09:31 Intake and Output: 06/21/18 06/21/18 06:59 18:59 Intake Total 350 Balance 350 - Medications Medications: Current Medications Acetaminophen (Tylenol 325mg Tab) 650 mg PO Q6H PRN PRN Reason: Pain, Mild (1-3) Last Admin: 06/20/18 17:22 Dose: 650 mg Codeine Sulfate (Codeine) 30 mg PO TID PRN PRN Reason: Pain, moderate (4-7) Last Admin: 06/21/18 08:32 Dose: 30 mg Hydrocortisone (Cortizone 2.5% Cream) 0 applic TOP BID MICHAEL Last Admin: 06/21/18 10:28 Dose: Not Given Cefepime HCl (Maxipime 1gm) 1 gm in 100 mls @ 100 mls/hr IVPB Q12 MICHAEL PRN Reason: Protocol Last Admin: 06/21/18 10:29 Dose: 100 mls/hr Vancomycin HCl (Vancomycin 1gm) 1 gm in 250 mls @ 167 mls/hr IVPB Q12H MICHAEL PRN Reason: Protocol Stop: 06/29/18 08:01 Last Admin: 06/21/18 08:33 Dose: 167 mls/hr Morphine Sulfate (Morphine) 4 mg IVP Q4H PRN PRN Reason: Pain, severe (8-10) Nystatin (Nystop Topical Powder) 0 gm TOP DAILY MICHAEL Last Admin: 06/21/18 10:29 Dose: Not Given - Labs Labs: 06/19/18 21:40 06/19/18 21:40 PT 12.0 SECONDS (9.4-12.5) 06/19/18 21:40 INR 1.05 06/19/18 21:40 - Constitutional Appears: Well, Non-toxic, No Acute Distress - Extremities Exam Additional comments: LLE focused exam: Vasc: DP/PT pulses faintly palpable secondary to b/l 1+ LE edema. Edema noted to be decreased from yesterday. CFT < 3 seconds to all digits. Skin temperature warm to warm from proximal to distal Neuro: Epicritic and protective sensation grossly intact b/l Derm: Dorsal left foot noted to have scaling with minimal serous drainage present, improved since yesterday. Otherwise, no open lesions, wounds, maceration, xerosis, abnormal pigmentation or abnormal growths noted MSK: Pain to dorsal right foot. ROM limited to all major joints secondary to swelling. No other gross deformities noted - Neurological Exam Neurological Exam: Alert, Awake, Oriented x3 - Psychiatric Exam Psychiatric exam: Normal Affect, Normal Mood Assessment and Plan - Assessment and Plan (Free Text) Assessment: 68F seen and evaluated at bedside for right foot eczematic changes with skin weeping Plan: Patient seen and evaluated Plan discussed with Dr. Bell Afebrile, absent leukocytosis Continue abx per ID 06/19 LE US: No evidence of DVT Wound dressed with Adaptic, DSD, hydrocortisone cream Will incorporate Nystatin powder during tomorrow's dressing change No plan for surgical intervention at this time Podiatry will continue to follow while patient in house
--- NOTE | 2018-06-21 15:37 | PN ---
DATE: 06/21/2018 SUBJECTIVE: The patient is in bed, in no acute distress, nontoxic. PHYSICAL EXAMINATION: VITAL SIGNS: On exam, temperature is 98, blood pressure is 120/70, respiratory rate of 16. HEENT: Examination of HEENT is unremarkable. NECK: Supple. LUNGS: Have decreased breath sounds. HEART: Normal S1, S2. ABDOMEN: Soft, nontender. LABORATORY DATA: Laboratory examination reveals a white count of 5.6, hemoglobin of 12. Chemistries are noted. BUN of 18, creatinine of 0.6. Microbiology reveals the blood cultures are negative. ASSESSMENT AND PLAN: A 68-year-old female, who is admitted with history of eczema and kidney disease, hernia, cystoscopy in the past, admitted with bilateral lower extremity foot edema with a left foot cellulitis, most likely from the eczema and the edema. Appears to be somewhat improved this morning. Thus far, the blood cultures are no growth at 24 hours. Currently, on vancomycin and cefepime. We will follow clinically with you. Dr. Gautam Verde's progress note is noted. Dr. Nicole's note is also reviewed. We will follow with you. Yasir Urena MD
[2018-06-22] MEDS: Vancomycin 1gm in NS 250ml 1 GM/250 ML BAG IVPB SCH ×2 (10:48→21:37)
[2018-06-22] MEDS: Cefepime 1gm in NS 100ml 1 GM/100 ML BAG IVPB SCH ×2 (10:48→21:36)
[2018-06-22] MEDS: Nystatin 100,000 Units/gm Topical Pow(15 gm) TOP SCH (10:53)
--- NOTE | 2018-06-22 14:13 | PN ---
DATE: 06/22/2018 SUBJECTIVE: The patient is 68 years old, seen and examined, lying in bed, seems to be comfortable. She stated her foot pain is much better. PHYSICAL EXAMINATION: VITAL SIGNS: She is afebrile, pulse 76, respirations 19, blood pressure 134/86. LUNGS: Bilateral fair airflow. No rhonchi or crackle. HEART: S1 and S2 audible. ABDOMEN: Soft. Nontender. No rebound. No guarding. NEUROLOGIC: She is awake, alert, oriented, communicative. EXTREMITIES: Her right foot wound has dried up. Left foot is in the dressing. LABORATORY DATA: Blood cultures were negative. ASSESSMENT: 1. Left foot cellulitis, mixed with allergic reaction. 2. History of nephrolithiasis. 3. Eczema. 4. Hypertension. PLAN: Continue the patient on Maxipime. She is on vancomycin and we will continue that. Local wound care is being done by Podiatry team. I will discuss with morphologist and ID. If she needs IV antibiotic, we will make a plan for her to be transferred to [facility]. Jesus Arevalo MD
--- NOTE | 2018-06-22 17:46 | CP.PCM.PN ---
<Jitenrda Arcos - Last Filed: 06/22/18 17:34> Subjective - Date & Time of Evaluation Date of Evaluation: 06/22/18 Time of Evaluation: 17:34 - Subjective Subjective: Podiatry Progress Note for Dr. Bell 68 Y/O F patient seen and evaluated at bedside for right foot eczematous changes with skin weeping. Patient is AAO x 3 and NAD, resting comfortably in bed. Patient denies any acute overnight acute events or any new pedal complaints. Patient states that she doesn't have any pain currently. Patient denies any overnight N/V/F/C or SOB. Objective - Vital Signs/Intake and Output Vital Signs (last 24 hours): Temp Pulse Resp BP Pulse Ox 98.0 F 94 H 19 124/84 97 06/22/18 17:13 06/22/18 17:13 06/22/18 17:13 06/22/18 17:13 06/22/18 17:13 Intake and Output: 06/22/18 06/22/18 06:59 18:59 Intake Total 590 Balance 590 - Medications Medications: Current Medications Acetaminophen (Tylenol 325mg Tab) 650 mg PO Q6H PRN PRN Reason: Pain, Mild (1-3) Last Admin: 06/20/18 17:22 Dose: 650 mg Codeine Sulfate (Codeine) 30 mg PO TID PRN PRN Reason: Pain, moderate (4-7) Last Admin: 06/21/18 20:20 Dose: 30 mg Hydrocortisone (Cortizone 2.5% Cream) 0 applic TOP BID MICHAEL Last Admin: 06/22/18 10:54 Dose: Not Given Cefepime HCl (Maxipime 1gm) 1 gm in 100 mls @ 100 mls/hr IVPB Q12 MICHAEL PRN Reason: Protocol Last Admin: 06/22/18 10:48 Dose: 100 mls/hr Vancomycin HCl (Vancomycin 1gm) 1 gm in 250 mls @ 167 mls/hr IVPB Q12H MICHAEL PRN Reason: Protocol Stop: 06/29/18 08:01 Last Admin: 06/22/18 10:48 Dose: 167 mls/hr Morphine Sulfate (Morphine) 4 mg IVP Q4H PRN PRN Reason: Pain, severe (8-10) Nystatin (Nystop Topical Powder) 0 gm TOP DAILY MICHAEL Last Admin: 06/22/18 10:53 Dose: 1 applic - Labs Labs: 06/19/18 21:40 06/19/18 21:40 PT 12.0 SECONDS (9.4-12.5) 06/19/18 21:40 INR 1.05 06/19/18 21:40 - Constitutional Appears: Well, Non-toxic, No Acute Distress - Head Exam Head Exam: ATRAUMATIC, NORMOCEPHALIC - Extremities Exam Additional comments: B/L LE focused exam: Vasc: DP/PT pulses 2/4 B/l. Right foot minimal dorsal pedal edema noted which is decreased from yesterday. cap refill < 3 seconds to all digits. Skin temperature warm to cool from proximal to distal b/l. Neuro: Gross and protective sensations are grossly intact b/l Derm: Dorsal left foot noted to have scaling with no drainage noted today. Hyperpigemnted changes noted on the dorsum of the foot R>L. no open lesions, wounds, maceration. Toe nails thickened and dystrophic X 10 MSK: Pain on touching the dorsal right foot which is less than yesterday . ROM limited to all major joints secondary to swelling. No other gross deformities noted - Neurological Exam Neurological Exam: Alert, Awake, Oriented x3 - Psychiatric Exam Psychiatric exam: Normal Affect, Normal Mood Assessment and Plan - Assessment and Plan (Free Text) Assessment: 68F seen and evaluated at bedside for right foot eczematous changes with B/l fungal skin infection Plan: Patient seen and evaluated at [facility] [place] [facility] bed side with Dr. Bell Plan discussed with Dr. Bell Chart, Labs and vitals reviewed; Afebrile, absent leukocytosis Continue abx per ID 06/19 LE U/S reviewed: No evidence of DVT Hydrocortisone cream, Nystatin powder applied b/l to the dorsum of the foot. Nystatin applied to the interdigital spaces. Foot left undressed b/l. Rx; Lotrimen cream applied topical QD. Will incorporate Lotrimen cream during tomorrow's dressing change No plan for surgical intervention at this time Podiatry will continue to follow while patient in house <Marianela Bell - Last Filed: 06/24/18 13:22> Objective - Vital Signs/Intake and Output Vital Signs (last 24 hours): Temp Pulse Resp BP Pulse Ox 98.3 F 69 20 132/74 96 06/24/18 06:00 06/24/18 06:00 06/24/18 06:00 06/24/18 06:00 06/24/18 06:00 Intake and Output: 06/24/18 06/24/18 06:59 18:59 Intake Total 360 Balance 360 - Medications Medications: Current Medications Acetaminophen (Tylenol 325mg Tab) 650 mg PO Q6H PRN PRN Reason: Pain, Mild (1-3) Last Admin: 06/23/18 22:14 Dose: 650 mg Cefpodoxime Proxetil (Vantin) 200 mg PO Q12 MICHAEL; Protocol Stop: 06/29/18 10:49 Clotrimazole (Lotrimin 1%) 1 gm TOP BID MICHAEL Last Admin: 06/23/18 18:16 Dose: 1 appful Codeine Sulfate (Codeine) 30 mg PO TID PRN PRN Reason: Pain, moderate (4-7) Last Admin: 06/23/18 11:10 Dose: 30 mg Doxycycline Hyclate (Doryx) 100 mg PO Q12 MICHAEL; Protocol Stop: 06/29/18 10:49 Morphine Sulfate (Morphine) 4 mg IVP Q4H PRN PRN Reason: Pain, severe (8-10) Nystatin (Nystop Topical Powder) 0 gm TOP DAILY MICHAEL Last Admin: 06/23/18 11:06 Dose: 1 applic - Labs Labs: 06/19/18 21:40 06/19/18 21:40 PT 12.0 SECONDS (9.4-12.5) 06/19/18 21:40 INR 1.05 06/19/18 21:40 Attending/Attestation - Attestation I have personally seen and examined this patient.: Yes I have fully participated in the care of the patient.: Yes I have reviewed all pertinent clinical information, including history, physical exam and plan: Yes
--- NOTE | 2018-06-22 19:06 | CP.PCM.PN ---
Subjective - Date & Time of Evaluation Date of Evaluation: 06/22/18 Time of Evaluation: 12:20 - Subjective Subjective: No fevers, not in distress, afebrile. Less pain in the legs, less swelling, no nausea. Objective - Vital Signs/Intake and Output Vital Signs (last 24 hours): Temp Pulse Resp BP Pulse Ox 98.0 F 94 H 19 124/84 97 06/22/18 17:13 06/22/18 17:13 06/22/18 17:13 06/22/18 17:13 06/22/18 17:13 Intake and Output: 06/22/18 06/23/18 18:59 06:59 Intake Total 1150 Balance 1150 - Medications Medications: Current Medications Acetaminophen (Tylenol 325mg Tab) 650 mg PO Q6H PRN PRN Reason: Pain, Mild (1-3) Last Admin: 06/20/18 17:22 Dose: 650 mg Codeine Sulfate (Codeine) 30 mg PO TID PRN PRN Reason: Pain, moderate (4-7) Last Admin: 06/21/18 20:20 Dose: 30 mg Hydrocortisone (Cortizone 2.5% Cream) 0 applic TOP BID MICHAEL Last Admin: 06/22/18 18:15 Dose: 1 applic Cefepime HCl (Maxipime 1gm) 1 gm in 100 mls @ 100 mls/hr IVPB Q12 MICHAEL PRN Reason: Protocol Last Admin: 06/22/18 10:48 Dose: 100 mls/hr Vancomycin HCl (Vancomycin 1gm) 1 gm in 250 mls @ 167 mls/hr IVPB Q12H MICHAEL PRN Reason: Protocol Stop: 06/29/18 08:01 Last Admin: 06/22/18 10:48 Dose: 167 mls/hr Morphine Sulfate (Morphine) 4 mg IVP Q4H PRN PRN Reason: Pain, severe (8-10) Nystatin (Nystop Topical Powder) 0 gm TOP DAILY [facility] Last Admin: 06/22/18 10:53 Dose: 1 applic - Labs Labs: 06/19/18 21:40 06/19/18 21:40 PT 12.0 SECONDS (9.4-12.5) 06/19/18 21:40 INR 1.05 06/19/18 21:40 - Constitutional Appears: Chronically Ill - Head Exam Head Exam: NORMAL INSPECTION - Respiratory Exam Respiratory Exam: Decreased Breath Sounds - Cardiovascular Exam Cardiovascular Exam: +S1, +S2 - GI/Abdominal Exam GI & Abdominal Exam: Soft. absent: Tenderness - Extremities Exam Additional comments: both legs with decreased swelling; left foot with dressings in place Assessment and Plan - Assessment and Plan (Free Text) Plan: Assessment Left foot cellulitis as well as eczema history of cystoscopy hernia Plan continue Vancomycin and Cefepime day 3 and will continue to monitor clinical response - patient will probably need 7-10 days of antibiotics follow up further plans of Podiatry
[2018-06-23] MEDS: Vancomycin 1gm in NS 250ml 1 GM/250 ML BAG IVPB SCH ×3 (01:45→23:24)
[2018-06-23 10:57] VITALS: RESP 20
[2018-06-23] MEDS: Cefepime 1gm in NS 100ml 1 GM/100 ML BAG IVPB SCH ×2 (11:05→22:04)
[2018-06-23] MEDS: Nystatin 100,000 Units/gm Topical Pow(15 gm) TOP SCH (11:06)
[2018-06-23] MEDS: Clotrimazole 1% Cream(30 gm) TOP SCH ×2 (11:07→18:16)
--- NOTE | 2018-06-23 11:11 | CP.PCM.PN ---
<Jitendra Arcos - Last Filed: 06/23/18 14:18> Subjective - Date & Time of Evaluation Date of Evaluation: 06/23/18 Time of Evaluation: 14:18 - Subjective Subjective: Podiatry Progress Note for Dr. Jones 68 Y/O F patient seen and evaluated at bedside for right foot eczematous changes with skin weeping. Patient is AAO x 3 and NAD, patient is resting comfortably in bed. Patient denies any acute overnight acute events or any new pedal complaints. Patient states that she doesn't have any pain in her feet currently. Patient states that she doesn't have any itchy sensation in her feet now. Patient denies any overnight N/V/F/C or SOB. Objective - Vital Signs/Intake and Output Vital Signs (last 24 hours): Temp Pulse Resp BP Pulse Ox 97.7 F 67 20 140/87 98 06/23/18 09:20 06/23/18 09:20 06/23/18 09:20 06/23/18 09:20 06/23/18 09:20 Intake and Output: 06/23/18 06/23/18 06:59 18:59 Intake Total 410 Balance 410 - Medications Medications: Current Medications Acetaminophen (Tylenol 325mg Tab) 650 mg PO Q6H PRN PRN Reason: Pain, Mild (1-3) Last Admin: 06/20/18 17:22 Dose: 650 mg Clotrimazole (Lotrimin 1%) 1 gm TOP BID MICHAEL Last Admin: 06/23/18 11:07 Dose: 1 appful Codeine Sulfate (Codeine) 30 mg PO TID PRN PRN Reason: Pain, moderate (4-7) Last Admin: 06/21/18 20:20 Dose: 30 mg Hydrocortisone (Cortizone 2.5% Cream) 0 applic TOP BID MICHAEL Last Admin: 06/23/18 11:06 Dose: 1 applic Cefepime HCl (Maxipime 1gm) 1 gm in 100 mls @ 100 mls/hr IVPB Q12 MICHAEL; Protocol Last Admin: 06/23/18 11:05 Dose: 100 mls/hr Vancomycin HCl (Vancomycin 1gm) 1 gm in 250 mls @ 167 mls/hr IVPB Q12H MICHAEL; Protocol Stop: 06/29/18 08:01 Last Admin: 06/23/18 01:45 Dose: Not Given Morphine Sulfate (Morphine) 4 mg IVP Q4H PRN PRN Reason: Pain, severe (8-10) Nystatin (Nystop Topical Powder) 0 gm TOP DAILY MICHAEL Last Admin: 06/23/18 11:06 Dose: 1 applic - Labs Labs: 06/19/18 21:40 06/19/18 21:40 PT 12.0 SECONDS (9.4-12.5) 06/19/18 21:40 INR 1.05 06/19/18 21:40 - Constitutional Appears: Well, Non-toxic, No Acute Distress - Head Exam Head Exam: ATRAUMATIC, NORMOCEPHALIC - Extremities Exam Additional comments: B/L LE focused exam: Vasc: DP/PT pulses 2/4 B/l. Right foot minimal dorsal pedal edema noted which is decreased from yesterday. cap refill < 3 seconds to all digits. Skin temperature warm to cool from proximal to distal b/l. Neuro: Gross and protective sensations are grossly intact b/l Derm: Dorsal left foot noted to have scaling with no drainage noted today. Hyperpigemnted changes noted on the dorsum of the foot R>L. no open lesions, wounds, maceration. Toe nails thickened and dystrophic X 10 MSK: Pain on touching the dorsal right foot which is less than yesterday . ROM limited to all major joints secondary to swelling. No other gross deformities noted - Neurological Exam Neurological Exam: Alert, Awake, Oriented x3 - Psychiatric Exam Psychiatric exam: Normal Affect, Normal Mood Assessment and Plan - Assessment and Plan (Free Text) Assessment: 68 y/o F patient seen and evaluated at bedside for right foot eczematous changes with B/l fungal skin infection. Plan: Patient seen and evaluated at [facility] bed side with Dr. Jones Plan discussed with Dr. Jones Chart, Labs and vitals reviewed; Afebrile, absent leukocytosis Continue abx per ID 06/19 LE U/S reviewed: No evidence of DVT Lotrimen cream applied b/l to the dorsum of the foot. Nystatin applied to the interdigital spaces. Foot left undressed b/l. No plan for surgical intervention at this time. Patient is stable from the podiatry stand point. Patient will be discharged from the hospital by her primary team. Podiatry will continue to follow while patient in house <Marino Jones - Last Filed: 06/23/18 15:47> Objective - Vital Signs/Intake and Output Vital Signs (last 24 hours): Temp Pulse Resp BP Pulse Ox 97.7 F 67 20 140/87 98 06/23/18 09:20 06/23/18 09:20 06/23/18 09:20 06/23/18 09:20 06/23/18 09:20 Intake and Output: 06/23/18 06/23/18 06:59 18:59 Intake Total 410 Balance 410 - Medications Medications: Current Medications Acetaminophen (Tylenol 325mg Tab) 650 mg PO Q6H PRN PRN Reason: Pain, Mild (1-3) Last Admin: 06/20/18 17:22 Dose: 650 mg Clotrimazole (Lotrimin 1%) 1 gm TOP BID MICHAEL Last Admin: 06/23/18 11:07 Dose: 1 appful Codeine Sulfate (Codeine) 30 mg PO TID PRN PRN Reason: Pain, moderate (4-7) Last Admin: 06/23/18 11:10 Dose: 30 mg Hydrocortisone (Cortizone 2.5% Cream) 0 applic TOP BID MICHAEL Last Admin: 06/23/18 11:06 Dose: 1 applic Cefepime HCl (Maxipime 1gm) 1 gm in 100 mls @ 100 mls/hr IVPB Q12 MICHAEL; Protocol Last Admin: 06/23/18 11:05 Dose: 100 mls/hr Vancomycin HCl (Vancomycin 1gm) 1 gm in 250 mls @ 167 mls/hr IVPB Q12H MICHAEL; Protocol Stop: 06/29/18 08:01 Last Admin: 06/23/18 12:18 Dose: 167 mls/hr Morphine Sulfate (Morphine) 4 mg IVP Q4H PRN PRN Reason: Pain, severe (8-10) Nystatin (Nystop Topical Powder) 0 gm TOP DAILY MICHAEL Last Admin: 06/23/18 11:06 Dose: 1 applic - Labs Labs: 06/19/18 21:40 06/19/18 21:40 PT 12.0 SECONDS (9.4-12.5) 06/19/18 21:40 INR 1.05 06/19/18 21:40 Attending/Attestation - Attestation I have personally seen and examined this patient.: Yes I have fully participated in the care of the patient.: Yes I have reviewed all pertinent clinical information, including history, physical exam and plan: Yes
[2018-06-23 17:02] VITALS: PULSE 69
--- NOTE | 2018-06-23 21:03 | CP.PCM.PN ---
Subjective - Date & Time of Evaluation Date of Evaluation: 06/23/18 Time of Evaluation: 10:35 - Subjective Subjective: Less pain in the left leg, no fevers, no nausea, feeling better. Objective - Vital Signs/Intake and Output Vital Signs (last 24 hours): Temp Pulse Resp BP Pulse Ox 97.7 F 69 20 137/91 H 98 06/23/18 17:02 06/23/18 17:02 06/23/18 17:02 06/23/18 17:02 06/23/18 17:02 Intake and Output: 06/23/18 06/24/18 18:59 06:59 Intake Total 1730 Balance 1730 - Medications Medications: Current Medications Acetaminophen (Tylenol 325mg Tab) 650 mg PO Q6H PRN PRN Reason: Pain, Mild (1-3) Last Admin: 06/20/18 17:22 Dose: 650 mg Clotrimazole (Lotrimin 1%) 1 gm TOP BID MICHAEL Last Admin: 06/23/18 18:16 Dose: 1 appful Codeine Sulfate (Codeine) 30 mg PO TID PRN PRN Reason: Pain, moderate (4-7) Last Admin: 06/23/18 11:10 Dose: 30 mg Cefepime HCl (Maxipime 1gm) 1 gm in 100 mls @ 100 mls/hr IVPB Q12 MICHAEL; Protocol Last Admin: 06/23/18 11:05 Dose: 100 mls/hr Vancomycin HCl (Vancomycin 1gm) 1 gm in 250 mls @ 167 mls/hr IVPB Q12H MICAHEL; Protocol Stop: 06/29/18 08:01 Last Admin: 06/23/18 12:18 Dose: 167 mls/hr Morphine Sulfate (Morphine) 4 mg IVP Q4H PRN PRN Reason: Pain, severe (8-10) Nystatin (Nystop Topical Powder) 0 gm TOP DAILY MICHAEL Last Admin: 06/23/18 11:06 Dose: 1 applic - Labs Labs: 06/19/18 21:40 06/19/18 21:40 PT 12.0 SECONDS (9.4-12.5) 06/19/18 21:40 INR 1.05 06/19/18 21:40 - Constitutional Appears: Chronically Ill - Head Exam Head Exam: NORMAL INSPECTION - Respiratory Exam Respiratory Exam: Decreased Breath Sounds - Cardiovascular Exam Cardiovascular Exam: +S1, +S2 - GI/Abdominal Exam GI & Abdominal Exam: Soft. absent: Tenderness - Extremities Exam Additional comments: decreased swelling and pain of the left leg Assessment and Plan - Assessment and Plan (Free Text) Plan: Assessment Left foot cellulitis as well as eczema, clinically improving history of cystoscopy hernia Plan continue Vancomycin and Cefepime day 4 and will continue to monitor clinical response - patient will need 7-10 days of antibiotics but may switch to PO antibiotics when ready for discharge follow up further plans of Podiatry
--- NOTE | 2018-06-23 21:47 | PN ---
DATE: 06/23/2018 SUBJECTIVE: Patient is [id number], seen and examined, lying in bed, seems to be comfortable. Her leg itchiness and pain and swelling has significantly improved. Feeling much better. PHYSICAL EXAMINATION: VITAL SIGNS: She is afebrile, pulse 67, respirations 20, blood pressure 140/87. LUNGS: Bilateral fair airflow. No rhonchi or crackle. HEART: S1 and S2 audible. ABDOMEN: Soft. Nontender. No rebound. No guarding. NEUROLOGICAL: Patient is awake and alert, able to communicate. Moves all extremities. Her left leg is bit swollen. Her left foot swelling has improved, but still has edema. Right foot is normal with no edema. ASSESSMENT: 1. Left foot cellulitis improving. 2. Hypertension. 3. Hyperlipidemia. 4. History of nephrolithiasis. PLAN: Currently, patient is on Tylenol #3. She is on cefepime. We will talk to IDs if her medications including cefepime and vancomycin has to be maintained or we can switch to p.o. antibiotic and according to that we will make disposition plan in a.m. Jesus Arevalo MD
[2018-06-24 08:43] VITALS: BP 132/74; TEMP 98.3; O2SAT 96
[2018-06-24] MEDS: Cefepime 1gm in NS 100ml 1 GM/100 ML BAG IVPB SCH (09:32)
[2018-06-24] MEDS: Vancomycin 1gm in NS 250ml 1 GM/250 ML BAG IVPB SCH (09:34)
[2018-06-24] MEDS ORDERED: Cefpodoxime (Vantin) 200 mg Tab PO SCH (10:48)
--- NOTE | 2018-06-24 11:10 | CP.PCM.PN ---
<Jitendra Arcos - Last Filed: 06/24/18 12:42> Subjective - Date & Time of Evaluation Date of Evaluation: 06/24/18 Time of Evaluation: 12:43 - Subjective Subjective: Podiatry Progress Note for Dr. Bell 68 Y/O F patient seen and evaluated at bedside for right foot eczematous changes with skin weeping. Patient is AAO x 3 and NAD, patient is resting comfortably in bed. Patient denies any acute overnight acute events or any new pedal complaints. Patient states that she doesn't have any pain in her feet currently. Patient states that she has mild itchy sensation in her feet now. Patient denies any overnight N/V/F/C or SOB. Objective - Vital Signs/Intake and Output Vital Signs (last 24 hours): Temp Pulse Resp BP Pulse Ox 98.3 F 69 20 132/74 96 06/24/18 06:00 06/24/18 06:00 06/24/18 06:00 06/24/18 06:00 06/24/18 06:00 Intake and Output: 06/24/18 06/24/18 06:59 18:59 Intake Total 360 Balance 360 - Medications Medications: Current Medications Acetaminophen (Tylenol 325mg Tab) 650 mg PO Q6H PRN PRN Reason: Pain, Mild (1-3) Last Admin: 06/23/18 22:14 Dose: 650 mg Cefpodoxime Proxetil (Vantin) 200 mg PO Q12 MICHAEL; Protocol Stop: 06/29/18 10:49 Clotrimazole (Lotrimin 1%) 1 gm TOP BID MICHAEL Last Admin: 06/23/18 18:16 Dose: 1 appful Codeine Sulfate (Codeine) 30 mg PO TID PRN PRN Reason: Pain, moderate (4-7) Last Admin: 06/23/18 11:10 Dose: 30 mg Doxycycline Hyclate (Doryx) 100 mg PO Q12 MICHAEL; Protocol Stop: 06/29/18 10:49 Morphine Sulfate (Morphine) 4 mg IVP Q4H PRN PRN Reason: Pain, severe (8-10) Nystatin (Nystop Topical Powder) 0 gm TOP DAILY MICHAEL Last Admin: 06/23/18 11:06 Dose: 1 applic - Labs Labs: 06/19/18 21:40 06/19/18 21:40 PT 12.0 SECONDS (9.4-12.5) 06/19/18 21:40 INR 1.05 06/19/18 21:40 - Constitutional Appears: Well, Non-toxic, No Acute Distress - Head Exam Head Exam: ATRAUMATIC, NORMOCEPHALIC - Extremities Exam Additional comments: B/L LE focused exam: Vasc: DP/PT pulses 2/4 B/l. Right foot minimal dorsal pedal edema noted which is decreased from yesterday. cap refill < 3 seconds to all digits. Skin temperature warm to cool from proximal to distal b/l. Neuro: Gross and protective sensations are grossly intact b/l Derm: Dorsal left foot noted to have scaling with no drainage noted today. Hyperpigemnted changes noted on the dorsum of the foot R>L. no open lesions, wounds, maceration. Toe nails thickened and dystrophic X 10 MSK: Pain on touching the dorsal right foot which is less than yesterday . ROM limited to all major joints secondary to swelling. No other gross deformities noted - Neurological Exam Neurological Exam: Alert, Awake, Oriented x3 - Psychiatric Exam Psychiatric exam: Normal Affect, Normal Mood Assessment and Plan - Assessment and Plan (Free Text) Assessment: 68 y/o F patient seen and evaluated at bedside for right foot eczematous changes with B/l fungal skin infection. Plan: Patient seen and evaluated at [facility] bed side with Dr. Bell Plan discussed with Dr. Bell Chart, Labs and vitals reviewed; Afebrile, absent leukocytosis Continue abx per ID 06/19 LE U/S reviewed: No evidence of DVT Lotrimen cream applied b/l to the dorsum of the foot. Nystatin applied to the interdigital spaces. Patient instructed to apply the steroid cream PRN when she feels itchy in her feet. Foot left undressed b/l. No plan for surgical intervention at this time. Patient is stable from the podiatry stand point. Patient will be discharged from the hospital by her primary team. Podiatry will continue to follow while patient in house Patient will follow up in the wound care center upon discharge. <Marianela Bell - Last Filed: 06/24/18 13:17> Objective - Vital Signs/Intake and Output Vital Signs (last 24 hours): Temp Pulse Resp BP Pulse Ox 98.3 F 69 20 132/74 96 06/24/18 06:00 06/24/18 06:00 06/24/18 06:00 06/24/18 06:00 06/24/18 06:00 Intake and Output: 06/24/18 06/24/18 06:59 18:59 Intake Total 360 Balance 360 - Medications Medications: Current Medications Acetaminophen (Tylenol 325mg Tab) 650 mg PO Q6H PRN PRN Reason: Pain, Mild (1-3) Last Admin: 06/23/18 22:14 Dose: 650 mg Cefpodoxime Proxetil (Vantin) 200 mg PO Q12 MICHAEL; Protocol Stop: 06/29/18 10:49 Clotrimazole (Lotrimin 1%) 1 gm TOP BID MICHAEL Last Admin: 06/23/18 18:16 Dose: 1 appful Codeine Sulfate (Codeine) 30 mg PO TID PRN PRN Reason: Pain, moderate (4-7) Last Admin: 06/23/18 11:10 Dose: 30 mg Doxycycline Hyclate (Doryx) 100 mg PO Q12 MICHAEL; Protocol Stop: 06/29/18 10:49 Morphine Sulfate (Morphine) 4 mg IVP Q4H PRN PRN Reason: Pain, severe (8-10) Nystatin (Nystop Topical Powder) 0 gm TOP DAILY MICHAEL Last Admin: 06/23/18 11:06 Dose: 1 applic - Labs Labs: 06/19/18 21:40 06/19/18 21:40 PT 12.0 SECONDS (9.4-12.5) 06/19/18 21:40 INR 1.05 06/19/18 21:40 Attending/Attestation - Attestation I have personally seen and examined this patient.: Yes I have fully participated in the care of the patient.: Yes I have reviewed all pertinent clinical information, including history, physical exam and plan: Yes
--- NOTE | 2018-06-24 14:36 | DS ---
HISTORY OF PRESENT ILLNESS: The patient is 68 years old, who was admitted with bilateral foot swelling, left more than right. 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 Her feet for some time and since then she started to have this, so she went to see the wound doctor, who referred her to emergency room for IV antibiotic and further wound care. The patient was followed by Podiatry team, doing well. Swelling and itching has improved a lot. Being discharged today. PHYSICAL EXAMINATION: GENERAL: She is awake, alert, oriented, communicative. VITAL SIGNS: The patient is afebrile, pulse 69, respirations 20, blood pressure 132/74. LUNGS: Bilateral good airflow. No rhonchi or crackle. HEART: S1 and S2 audible. No murmur. ABDOMEN: Soft. Nontender. No rebound. No guarding. NEUROLOGICAL: The patient is awake, alert, oriented, communicative. LABORATORY EXAM: There is no new lab today. ASSESSMENT: 1. Bilateral leg edema. 2. History of hypertension. 3. Bilateral leg rash that has significantly improved. PLAN: The patient is being discharged home on doxycycline 100 mg twice a day for 5 more days; clotrimazole, Lotrimin cream to area and Vantin 200 twice a day for 5 more days. She will follow up with Dr. Bell and she will follow up with me. Jesus Arevalo MD
--- NOTE | 2018-06-24 15:28 | PN ---
DATE: 06/24/2018 SUBJECTIVE: The patient is in bed, in no acute distress, was seen earlier this morning, in room 374, bed 2. She states that she wants to go home. She is doing well. PHYSICAL EXAMINATION: VITAL SIGNS: Temperature is 98, blood pressure is 130/70, respiratory rate 16. HEENT: Examination of HEENT is unremarkable. NECK: Supple. LUNGS: Had decreased breath sounds. HEART: Normal S1, S2. ABDOMEN: Soft. LABORATORY DATA: Reveals the patient's white count to be at 5.6. Chemistries are noted. Cultures are reviewed. The patient's blood cultures are negative. Examination of the patient's feet have been greatly improved. Currently, the patient is on vanco and cefepime and Dr. Bell was also present this morning and case was discussed with Dr. Bell. Dr. Bell also agrees the patient being discharged. ASSESSMENT AND PLAN: A 68-year-old female who was admitted with left foot cellulitis with eczema, now improving. We will discontinue the vancomycin and cefepime, day #5 and switch to p.o. doxy and .p.o. Vantin to complete therapy of 5 days. Case discussed with Elise, the nurse caring for the patient and the patient and Dr. Bell. We will follow closely with you. Yasir Urena MD
== END 2018-06-24 14:32 | disposition home or self-care (01) | DRG 603 ==
LOC: ED 16:57 → ERH 21:24 → 3RSO 06-20 00:33
PROVIDERS: ADMIT Internal Medicine; ATTEND Internal Medicine
DX: L03.116 Cellulitis of left lower limb (principal); L03.115 Cellulitis of right lower limb; L30.9 Dermatitis, unspecified; B36.9 Superficial mycosis, unspecified; I10 Essential (primary) hypertension; Z87.442 Personal history of urinary calculi

== ENCOUNTER 2018-10-22 16:39 | Emergency (ER) | payer BC, MEDICARE ==
[2018-10-22 16:44] VITALS: BP 116/74; PULSE 87; RESP 18; TEMP 98.2; O2SAT 96; BMI 23.3
--- NOTE | 2018-10-22 17:07 | ED PDOC ---
Arrival/HPI - General Time Seen by Provider: 10/22/18 16:42 Historian: Patient - History of Present Illness Narrative History of Present Illness (Text): 10/22/18 17:03 68yo female with pmhx of hypertension who present with complaint of right eye redness x 5days. States the redness started while she was in [place] during a [place]. States the redness was worse, but it improved. came to ED for evaluation. Denies visual changes, pain, discharge, any other complaint. Past Medical History - Provider Review Nursing Documentation Reviewed: Yes - Infectious Disease Hx of Infectious Diseases: None - Cardiac Hx Cardiac Disorders: No - Pulmonary Hx Respiratory Disorders: No - Neurological Hx Neurological Disorder: No - HEENT Hx HEENT Disorder: No - Renal Hx Renal Disorder: Yes Hx Kidney Stones: Yes - Endocrine/Metabolic Hx Endocrine Disorders: No - Hematological/Oncological Hx Blood Disorders: No - Integumentary Hx Dermatological Disorder: No - Musculoskeletal/Rheumatological Hx Musculoskeletal Disorders: No Hx Falls: No - Gastrointestinal Hx Gastrointestinal Disorders: No - Genitourinary/Gynecological Hx Genitourinary Disorders: No - Psychiatric Hx Psychophysiologic Disorder: No Hx Substance Use: No - Surgical History Other/Comment: hernia repair. Kidney stent - Anesthesia Hx Anesthesia Reactions: No Hx Malignant Hyperthermia: No - Suicidal Assessment Feels Threatened In Home Enviroment: No Family/Social History - Physician Review Nursing Documentation Reviewed: Yes Family/Social History: Unknown Family HX Smoking Status: Never Smoked Hx Alcohol Use: No Hx Substance Use: No Hx Substance Use Treatment: No Allergies/Home Meds Allergies/Adverse Reactions: Allergies Iodine and Iodide Containing Produc Allergy (Verified 06/19/18 18:27) RASH shellfish derived Allergy (Verified 06/19/18 18:27) RASH cast material Allergy (Uncoded 06/19/18 18:27) SWELLING Review of Systems - Physician Review All systems were reviewed & negative as marked: Yes - Review of Systems Constitutional: Normal Eyes: Other (Right eye redness) ENT: Normal Respiratory: Normal Cardiovascular: Normal Gastrointestinal: Normal Genitourinary Female: Normal Musculoskeletal: Normal Skin: Normal Neurological: Normal Endocrine: Normal Hemo/Lymphatic: Normal Psychiatric: Normal Physical Exam Vital Signs Reviewed: Yes Vital Signs Temp Pulse Resp BP Pulse Ox 10/22/18 16:41 98.2 F 87 18 116/74 96 Temperature: Afebrile Blood Pressure: Normal Pulse: Regular Respiratory Rate: Normal Appearance: Positive for: Well-Appearing, Non-Toxic, Comfortable Pain Distress: None Mental Status: Positive for: Alert and Oriented X 3 - Systems Exam Head: Present: Atraumatic, Normocephalic Pupils: Present: PERRL Extroacular Muscles: Present: EOMI Conjunctiva: Present: Normal, Other (Very small linear redness noted on right conjunctiva) Mouth: Present: Moist Mucous Membranes Neck: Present: Normal Range of Motion Respiratory/Chest: Present: Clear to Auscultation, Good Air Exchange. No: Respiratory Distress, Accessory Muscle Use Cardiovascular: Present: Regular Rate and Rhythm, Normal S1, S2. No: Murmurs Abdomen: No: Tenderness, Distention, Peritoneal Signs Back: Present: Normal Inspection Upper Extremity: Present: Normal Inspection. No: Cyanosis, Edema Lower Extremity: Present: Normal Inspection. No: Edema Neurological: Present: GCS=15, CN II-XII Intact, Speech Normal Skin: Present: Warm, Dry, Normal Color. No: Rashes Psychiatric: Present: Alert, Oriented x 3, Normal Insight, Normal Concentration Disposition/Present on Arrival - Present on Arrival Any Indicators Present on Arrival: No History of DVT/PE: No History of Uncontrolled Diabetes: No Urinary Catheter: No History Surgical Site Infection Following: None - Disposition Have Diagnosis and Disposition been Completed?: Yes Diagnosis: Subconjunctival hemorrhage Disposition: HOME/ ROUTINE Disposition Time: 17:10 Patient Plan: Discharge Condition: STABLE Discharge Instructions (ExitCare): Subconjunctival Hemorrhage Additional Instructions: Follow up with peel oven tender Return to ED for any new or worsening symptoms Referrals: Jesus Arevalo MD [Primary Care Provider] - Follow up with primary Jed Reilly MD [Staff Provider] - Follow up with primary Marianela Bell DPM [Staff Provider] - Follow up with primary
== END 2018-10-22 17:26 | disposition home or self-care (01) ==
LOC: ED 16:39
DX: H11.31 Conjunctival hemorrhage, right eye (principal); I10 Essential (primary) hypertension